=== PATIENT | female | born 1990 | race African-American/Black ===

== ENCOUNTER 2017-06-22 08:59 | Inpatient (IN) | payer OTHER ==
[2017-06-22 09:34] LABS: APPEARANCE,URINE SLIGHTLY-CLOUDY; BILIRUBIN,URINE NEGATIVE (NEGATIVE); GLUCOSE, URINE NEGATIVE (NEGATIVE); KETONES,URINE NEGATIVE (NEGATIVE); LEUKOCYTE ESTERASE,URINE TRACE (NEGATIVE); NITRITE,URINE NEGATIVE (NEGATIVE); PROTEIN,URINE NEGATIVE (NEGATIVE); URINE SPECIFIC GRAVITY 1.011
[2017-06-22 09:51] LABS: URINE BARBITURATES SCREEN NEGATIVE; URINE METHADONE SCREEN NEGATIVE; URINE OPIATES LOW NEGATIVE
[2017-06-22] MEDS ORDERED: RINGERS SOLUTION,LACTATED 1,000 ML IV ONE (09:59)
[2017-06-22] MEDS ORDERED: RINGERS SOLUTION,LACTATED 1,000 ML IV PRN (10:03)
[2017-06-22] MEDS ORDERED: LIDOCAINE 1% INJ-PF (10 MG/ML) 30 ML SDV ONE (10:27)
[2017-06-22] MEDS ORDERED: MISOPROSTOL 0.2 MG TABLET ONE (10:27)
[2017-06-22] MEDS ORDERED: OXYTOCIN/NORMAL SALINE 20 UNIT/1,000 ML RTUINJ ONE ×2 (10:27→21:34)
[2017-06-22 10:35] LABS: URINE PHENCYCLIDINE SCREEN NEGATIVE
[2017-06-22] MEDS ORDERED: OXYTOCIN/NORMAL SALINE 1,000 ML IV PRN (10:37)
[2017-06-22 11:00] LABS: ABSOLUTE EOSINOPHILS # (AUTO) 0.1 10^3/uL (0.0-0.6); ABSOLUTE LYMPHOCYTES (AUTO) 1.2 10^3/uL (0.5-4.7); ABSOLUTE MONOCYTES (AUTO) 0.7 10^3/uL (0.1-1.4); BASOPHILS % (AUTO) 0.2 % (0-2); EOSINOPHILS % (AUTO) 0.7 % (0-6); HEMATOCRIT 29.8 % (36.0-47.0); HEMOGLOBIN 9.7 g/dL (12.0-15.5); HGB HCT DIFFERENCE -0.7; LYMPHOCYTES % (AUTO) 13.1 % (13-45); MEAN CORPUSCULAR HEMOGLOBIN 24.6 pg (27.0-33.4); MEAN CORPUSCULAR HGB CONC 32.7 g/dL (32.0-36.0); MEAN CORPUSCULAR VOLUME 75 fl (80-97); MONOCYTES % (AUTO) 7.5 % (3-13); RED BLOOD COUNT 3.95 10^6/uL (3.72-5.28); RED CELL DISTRIBUTION WIDTH 15.3 % (11.5-14.0); SEGMENTED NEUTROPHILS % (AUTO) 78.5 % (42-78)
[2017-06-22] MEDS ORDERED: OXYTOCIN/NORMAL SALINE 20 UNIT/1,000 ML RTUINJ IV PRN (11:11)
[2017-06-22] MEDS ORDERED: FENTANYL/BUPIVACAINE/NS/PF 200 MCG/100 ML RTUINJ EPI ONE (15:12)
[2017-06-22] MEDS ORDERED: FENTANYL CITRATE INJ/PF 100 MCG/2 ML AMPUL ONE ×3 (15:12→21:56)
[2017-06-22] MEDS ORDERED: EPHEDRINE SULFATE INJ 50 MG/1 ML AMPULE ONE ×2 (15:12→20:55)
[2017-06-22] MEDS ORDERED: PHENYLEPHRINE HCL INJ/PF 10 MG/1 ML SDV ONE (15:12)
[2017-06-22] MEDS ORDERED: BUPIVACAINE HCL 0.25 % INJ/PF (2.5 MG/1 ML) 30 ML VIAL ONE (15:13)
--- NOTE | 2017-06-22 16:49 | L&D Progress Notes ---
PROGRESS NOTES Datetime Report Generated by CPN: 06/22/2017 16:48 PROGRESS NOTE Impression: Normal Progression of Labor Impression: Normal Progression of Labor Procedures: Artificial ROM; Scalp Electrode Procedures: Artificial ROM; Sterile Vag Exam Plan: Continue Present Management Plan: Continue Present Management; Induction Informed Consent Obtained: Vaginal Delivery Informed Consent Obtained: Vaginal Delivery Vital Signs : Reviewed Vital Signs : Reviewed Comment: Attempted AROM, no fluid return Bloody show Continue pitocin VAGINAL EXAM Dilatation: 4 Dilatation: 3 Effacement: 80 Effacement: 60 Station: 0 Station: 0 Contractions: every 2 Contractions: irregular MEMBRANES Membranes: Ruptured Membranes: Intact FETUS A FHR - Baseline: 135 Monitoring: External US Variability: Moderate 6-25bpm Accelerations: 15X15 Decelerations: None FHR Category: Category I Estimated Weight (gm): 3400 Presentation: Vertex SIGNATURE SIGNATURE: [id number] Assignment: Gerri Marin MD Signature: with User ID: [email or web address] : with User ID: [email or web address]
[2017-06-22] MEDS ORDERED: SODIUM BICARBONATE 8.4% INJ 50 MEQ/50 ML DISP.SYRIN ONE (17:34)
[2017-06-22] MEDS ORDERED: LIDOCAINE 2%/EPINEPHRINE INJ 20 ML VIAL ONE (17:34)
[2017-06-22] MEDS ORDERED: ONDANSETRON HCL INJ/PF 4 MG/2 ML SDV ONE ×2 (19:11→21:45)
--- NOTE | 2017-06-22 19:27 | L&D Progress Notes ---
PROGRESS NOTES Datetime Report Generated by CPN: 06/22/2017 19:27 PROGRESS NOTE Impression: Normal Progression of Labor; Reassuring Heart Rate Procedures: Sterile Vag Exam Plan: Continue Present Management Informed Consent Obtained: Vaginal Delivery Vital Signs : Reviewed; Within Normal Limits Comment: SVE as above anticipate VAGINAL EXAM Dilatation: 7 Effacement: 90 Station: 0 Contractions: 2-4 MEMBRANES Membranes: Ruptured Amniotic Fluid Color: Clear FETUS A FHR - Baseline: 135 Monitoring: External US Variability: Moderate 6-25bpm Accelerations: 15X15 Decelerations: None; Early FHR Category: Category I FETUS C SIGNATURE: [id number] Assignment: Gerri Marin MD Signature: with User ID: [email or web address] : with User ID: [email or web address]
[2017-06-22] MEDS ORDERED: CEFAZOLIN 2 GM/D5W RTU 2 GM/50 ML RTUPB IV ONE (20:41)
[2017-06-22] MEDS ORDERED: CITRIC ACID/SODIUM CITRATE ORAL SOLN 15 ML UDCUP ONE (20:45)
[2017-06-22] MEDS ORDERED: OXYTOCIN 10 UNIT/ML VIAL ONE (20:55)
[2017-06-22] MEDS ORDERED: MIDAZOLAM 2 MG/2 ML INJ ONE (20:56)
[2017-06-22] MEDS ORDERED: METHYLERGONOVINE MALEATE INJ/PF 0.2 MG/1 ML AMPULE ONE (21:09)
[2017-06-22] MEDS ORDERED: ONDANSETRON HCL INJ/PF 4 MG/2 ML SDV IV PRN (21:20)
[2017-06-22] MEDS ORDERED: DIPHENHYDRAMINE HCL 50 MG/ML VIAL IV PRN (21:20)
[2017-06-22] MEDS ORDERED: MEPERIDINE HCL/PF INJ 25 MG/1 ML DISP.SYRIN IV PRN (21:20)
[2017-06-22] MEDS ORDERED: MORPHINE SULFATE 10 MG/ML INJ IV PRN (21:20)
[2017-06-22] MEDS ORDERED: PROMETHAZINE HCL INJ 25 MG/1 ML VIAL IV PRN ×2 (21:20)
[2017-06-22] MEDS ORDERED: FENTANYL CITRATE INJ/PF 100 MCG/2 ML AMPUL IV PRN ×2 (21:20)
[2017-06-22] MEDS ORDERED: OXYCODONE-ACETAMINOPHEN 5-325 MG TABLET PO PRN ×2 (21:20)
--- NOTE | 2017-06-22 21:34 | L&D Progress Notes ---
PROGRESS NOTES Datetime Report Generated by CPN: 06/22/2017 21:34 PROGRESS NOTE Comment: Strong urge to push. Anterior lip, pushed away initially, but became very swollen with very little descent Dr. Marin called to bedside Discussed c/s with pt Verbal consent obtained Pt preparred for surgery. FETUS C SIGNATURE: [id number] Assignment: Gerri Marin MD Signature: with User ID: [email or web address] : with User ID: [email or web address]
[2017-06-22] MEDS ORDERED: MORPHINE SULFATE 10 MG/ML INJ ONE (21:57)
[2017-06-22] MEDS ORDERED: HYDROMORPHONE HCL INJ/PF 2 MG/ML AMPULE ONE (21:59)
[2017-06-22] MEDS ORDERED: HYDROMORPHONE HCL 2 MG TABLET PO ONE (22:02)
[2017-06-22] MEDS ORDERED: ACETAMINOPHEN 100 ML IV PRN (22:08)
--- NOTE | 2017-06-22 22:12 | OPERATIVE REPORT E ---
Operative Report NAME: MARIO SMITH : 1990 AGE: 26Y DATE OF SURGERY: 06/22/2017 ROOM: LR200 PREOPERATIVE DIAGNOSIS: Intrauterine at term with oligohydramnios and nonreassuring heart tones, in labor. POSTOPERATIVE DIAGNOSIS: Intrauterine at term with oligohydramnios and nonreassuring heart tones, in labor. OPERATION PERFORMED: Primary low transverse . SURGEON: RADHA MCCOY M.D. ANESTHESIA: Epidural which was bolused. ESTIMATED BLOOD LOSS: 750 mL. SPECIMENS: Placenta was sent to pathology. FINDINGS: Quijano female , vertex presentation but occiput posterior position. Weight was 8 pounds. Apgars 9 and 9. Normal uterus, tubes and ovaries. DESCRIPTION OF PROCEDURE: After discussing risks, benefits, and alternatives, the patient was taken to the operating room with epidural bolus. She was positioned in the dorsal supine position with a leftward tilt. She was prepped and draped in the usual standard fashion. Anesthesia was found to be adequate and Pfannenstiel skin incision was made. Abdomen was entered in layers in the standard fashion. Using the c-safe knife, a low transverse cervical incision was made. Surgeon's hand was entered into the hysterotomy incision and the vertex was elevated out of the pelvis and delivered. Shoulders and body delivered easily thereafter. Nasopharynx and oropharynx were bulb suctioned. Cord was clamped and cut. Infant was handed to pediatrics, who were present. Placenta was manually extracted. Uterus was exteriorized and cleared of all clots and debris. Hysterotomy incision was closed with 0 Monocryl in a running-locked fashion. An area of oozing on the left aspect of the uterus was oversewn with [id number]-ob-fxfma of 0 Monocryl. Hemostasis was then observed. Uterus, tubes, and ovaries returned to the peritoneal cavity, and the cavity was irrigated. The patient was also given an amp of Methergine IM, as the uterus had been very boggy after protracted induction. The peritoneum was irrigated and hemostasis assured. Surgicel was placed over the lower uterine segment. The peritoneum was closed with 2-0 Vicryl. The muscles were loosely reapproximated with interrupted sutures of 2-0 Vicryl. Subfascial spaces were inspected and hemostasis achieved with cautery. The fascia was closed with 0 Vicryl. Subcutaneous spaces were irrigated and hemostasis achieved with cautery. The subcutaneous spaces were closed with 3-0 plain gut and the skin was closed in a subcuticular fashion with 3-0 Vicryl. An OpSite dressing was applied. Cytotec 1000 mcg was placed per rectum to help maintain good uterine tone. The patient was taken to recovery in stable condition. All sponge, needle, lap, and instrument counts were correct x2. DICTATING PHYSICIAN: RADHA MCCOY M.D. [id number] PHY#: [id number] ID: [id number] JOB#: [id number] ACCT: [id number] cc:RADHA MCCOY M.D. > MTDD
[2017-06-22] MEDS ORDERED: ACETAMINOPHEN 100 ML IV ONE (22:16)
[2017-06-22] MEDS ORDERED: PROMETHAZINE HCL INJ 25 MG/1 ML VIAL ONE (22:16)
[2017-06-22] MEDS: FENTANYL CITRATE INJ/PF 100 MCG/2 ML AMPUL IV PRN ×2 (22:32→22:55)
--- NOTE | 2017-06-22 22:43 | Delivery Summary ---
Del Sum A-C Datetime Report Generated by CPN: 06/22/2017 22:43 DELIVERY PERSONNEL DELIVERY PERSONNEL: [id number] Delivery Doctor:: Gerri Marin MD Anesthesiologist:: Vero Ying MD FINE ARTS MODEL:: HENRIK Aleman Labor and Delivery Nurse:: Lisa Chambers RN Neonatal Nurse Practitioner:: SARAH Ovalle Certified [place]orth[place] Reporter/CUSTOMER CONSULTANT: [facility] Yandy Certified Shorthand Reporter/CUSTOMER CONSULTANT: [facility] Bogdan Additional Personnel: : Willow Johnson CNA MATERNAL INFORMATION Delivery Anesthesia: Epidural Medications After Delivery: Pitocin Drip 20 Units/1000ml NSS; Methergine 0.2mg IM; Other-Please Comment Meds After Delivery Comment: Cytotec 1000mcg placed in OR by Dr Marin Maternal Complications: None LABOR SUMMARY EDC: 06/21/2017 00:00 No. Babies in Womb: 1 Attempted: No Labor Anesthesia: Epidural LABOR INFORMATION Reason for Induction: Oligohydramnios Onset of Labor: 06/22/2017 16:23 Oxytocin: Induction Group B Beta Strep: negative Steroids Given: None Reason Steroids Not Administered: Not Applicable MEMBRANES Membranes Rupture Method: Artificial Rupture of Membranes: 06/22/2017 16:23 Length of Rupture (hr): 4.65 Amniotic Fluid Color: Clear Amniotic Fluid Amount: None Amniotic Fluid Odor: Normal STAGES OF LABOR Stage 3 hr: 0 Stage 3 min: 1 Total Time in Labor hr: 4 Total Time in Labor min: 40 CSECTION DELIVERY Primary Indication: Nonreassuring Status CSection Urgency: Emergency CSection Incidence: Primary Labor: Labor Elective: N/A CSection Incision: Lower Uterine Transverse BABY A INFORMATION Delivery Date/Time: 06/22/2017 21:02 Method of Delivery: Born in Route : No : N/A Forceps: N/A Vacuum Extraction: N/A Shoulder Dystocia : No PRESENTATION/POSITION BABY A Presentation: Cephalic Cephalic Presentation: Vertex Breech Presentation: N/A PLACENTA INFORMATION BABY A Placenta Delivery Time : 06/22/2017 21:03 Placenta Method of Delivery: Spontaneous Placenta Status: Delivered SCORES BABY A Heart Rate 1 min: >100 bpm Resp Effort 1 min: Good Cry Reflex Irritability 1 min: Cough or Sneeze or Pulls Away Muscle Tone 1 min: Active Motion Color 1 min: Body Reedy, Extremities Blue SCORE 1 MIN: 9 Heart Rate 5 min: >100 bpm Resp Effort 5 min: Good Cry Reflex Irritability 5 min: Cough or Sneeze or Pulls Away Muscle Tone 5 min: Active Motion Color 5 min: Body Reedy, Extremities Blue SCORE 5 MIN: 9 INFANT INFORMATION BABY A Gestational Age at Delivery: 40.1 Gestational Status: Full Term- 39- 40.6 Weeks Outcome : Liveborn Condition : Stable Infant Sex: Female IDENTIFICATION BABY A Verification Date/Time: 06/22/2017 21:08 ID Band Number: [id number] Mother's Name Verified: Yes Infant RN Verifying Infant: S. Lattibjessicair, RN _ KSajan Cordero, RN WEIGHT/LENGTH BABY A Birthweight (gm): 3640 Weight (lb): 8 Infant Weight (oz): 0 Infant Length (in): 21.75 Length (cm): 55.25 CORD INFORMATION BABY A No. Cord Vessels: 3 Nuchal Cord : N/A Cord Blood Taken: Yes-For Eval (Mom's Blood Type - or O+) Suction: Mouth; Nose ASSESSMENT BABY A Infant Complications: Other Complications- Other: prolonged decel Physical Findings at Delivery: Within Normal Limits Respirations: Appears Normal Skin to Skin: No Skin to Skin Time (min): 0 Encapsulator/ALS Called : No Care By: Shashank Fernando RN Transferred To: Nursery
[2017-06-22] MEDS ORDERED: OXYCODONE-ACETAMINOPHEN 5-325 MG TABLET ONE (23:46)
--- NOTE | 2017-06-22 23:58 | Admission Physical ---
Datetime Report Generated by CPN: 06/22/2017 23:58 CURRENT ADMISSION Hx Assessment: The History has been Reviewed and is Current Chief Complaint: Uterine Contractions; Other Chief Complaint Other: oligo Indication for Induction: Post Dates; Oligohydramnios Admit Plan: Admit to Unit ALLERGIES Medication Allergies: No Medication Allergies: No Known Allergies (06/22/2017) Latex: No Latex Allergies OBSTETRICAL HISTORY EDC: 06/21/2017 00:00 : 2 Para: 1 Term: 1 : 0 SAB: 0 IAB: 0 Ectopic: 0 Livin Cesareans: 0 VBACs: 0 Multiple Births: 0 Gestational Diabetes: No Rh Sensitization: No Incompetent Cervix: No ERVNI: No Infertility: No ART Treatment: No Uterine Anomaly: No IUGR: No Hx Previous C/S: No Macrosomia: No Hx Loss/Stillborn: No PIH: No Hx : No Placenta Previa/Abruption: Yes Depression/PP Depression: No PTL/PROM: No Post Hemorrhage: No Current Procedures: Ultrasound; NST Obstetrical History Comments: G1: 09/2011, G2: current, marginal previa (resolved) SEE RECORDS Alcohol: No Marijuana : No Cocaine: No Other Illicit Drugs: No Cigarettes: Never Smoker. [id number] MEDICAL HISTORY Diabetes: No Blood Transfusion: No Pulmonary Disease (Asthma, TB): No Breast Disease: No Hypertension: No Installer Soft Top Surgery: No Heart Disease: No Hosp/Surgery: Yes Autoimmune Disorder: No Anesthetic Complications: No Kidney Disease: No Abnormal Pap Smear: No Neuro/Epilepsy: No Psychiatric Disorders: No Other Medical Diseases: No Hepatitis/Liver Disease: No Significant Family History: No Varicosities/Phlebitis: No Trauma/Violence : No Thyroid Dysfunction: No Medical History Comments: Umbilicalplasty INFECTIOUS HISTORY Gonorrhea: No Genital Herpes: No Chlamydia: No Tuberculosis: No Syphilis: No Hepatitis: No HIV/AIDS Exposure: No Rash or Viral Illness: No HPV: No Infectious History Comments: BV PHYSICAL EXAM General: Normal HEENT: Normal Neurologic: Normal Thyroid: Deferred Heart: Normal Lungs: Normal Breast: Normal Back: Normal Abdomen: Normal Genitourinary Exam: Normal Extremities: Normal DTRs: Normal Pelvic Type: Adequate Physical Exam Comments: pelvis proven 6 lbs 14oz Vital Signs: Reviewed VAGINAL EXAM Dilatation: 7 Dilatation: 4 Dilatation: 3 Effacement: 90 Effacement: 80 Effacement: 60 Station: 0 Station: 0 Station: 0 Contraction Comments: 2-4 Contraction Comments: every 2 Contraction Comments: irregular MEMBRANES Membranes: Ruptured Membranes: Ruptured Membranes: Intact Amniotic Fluid Color: Clear FETUS A EGA: 40.1 Monitoring: External US FHR- Baseline: 125 Variability: Moderate 6-25bpm Accelerations: 15X15 Decelerations: None FHR Category: Category III Estimated Weight (gm): 3400 Presentation: Vertex Admit Comment: ? leaking, neg nitr, neg pooling DAVID 4 GBS neg Admit to L and D Pitocin see hx for complete hx PLANS FOR LABOR AND DELIVERY Labor and Delivery: None Pain Management: Epidural Feeding Preference: Both Benefit of Breast Feed Discussed: Yes Circumcision: N/A INFORMED CONSENT Informed Consent Obtained: Vaginal Delivery Informed Consent Obtained: Vaginal Delivery Informed Consent Obtained: Vaginal Delivery Assignment: Gerri Marin MD Signature: with User ID: [email or web address] : with User ID: [email or web address]
[2017-06-23] MEDS ORDERED: OXYCODONE-ACETAMINOPHEN 5-325 MG TABLET PO PRN (00:35)
[2017-06-23] MEDS ORDERED: DIPH/PERTUSS(ACELL)/TETANUS VAC/PF 0.5 ML SYR (>=10YO) IM PRN (00:35)
[2017-06-23] MEDS ORDERED: ACETAMINOPHEN 325 MG TABLET PO PRN (00:35)
[2017-06-23] MEDS ORDERED: MEASLES,MUMPS&RUBELLA VACC/PF 0.5 ML VIAL SUBCUT PRN (00:35)
[2017-06-23] MEDS ORDERED: OXYTOCIN/NORMAL SALINE 1,000 ML IV PRN (00:35)
[2017-06-23] MEDS ORDERED: PROMETHAZINE HCL INJ 25 MG/1 ML VIAL IV PRN (00:35)
[2017-06-23] MEDS ORDERED: RINGERS SOLUTION,LACTATED 1,000 ML IV PRN (00:35)
[2017-06-23] MEDS ORDERED: HYDROMORPHONE HCL INJ/PF 2 MG/ML AMPULE ONE (00:39)
[2017-06-23] MEDS ORDERED: CEFAZOLIN 2 GM/D5W RTU 2 GM/50 ML RTUPB IV SCH (01:00)
[2017-06-23] MEDS ORDERED: HYDROMORPHONE HCL INJ/PF 2 MG/ML AMPULE INJ PRN (01:35)
[2017-06-23] MEDS: CEFAZOLIN 2 GM/D5W RTU 2 GM/50 ML RTUPB IV SCH ×4 (03:41→21:00)
[2017-06-23] MEDS: HYDROMORPHONE HCL INJ/PF 2 MG/ML AMPULE INJ PRN ×2 (03:45→07:06)
[2017-06-23] MEDS: IBUPROFEN 800 MG TABLET PO SCH ×4 (05:21→23:08)
[2017-06-23] MEDS: PRENATAL VITAMIN W-O CA NO5/FE FUMARATE/FA CAPSULE PO SCH (09:54)
[2017-06-23] MEDS: DOCUSATE SODIUM 100 MG CAPSULE PO SCH ×2 (09:54→17:30)
--- NOTE | 2017-06-23 13:01 | PDOC PROGRESS REPORT ---
Subjective-OB Subjective: Post Delivery Day: 26 year old. Denies any needs at this time. Pt denies complaints. She reports light bleeding, regular diet. FC to BSD with clear yellow urine. Has not been out of bed yet. Physical Exam (OB) Vital Signs: Temp Pulse Resp BP Pulse Ox 99.1 F 78 14 104/58 L 98 06/23/17 11:40 06/23/17 11:40 06/23/17 11:40 06/23/17 11:40 06/23/17 11:40 Intake & Output 06/22/17 06/23/17 06/24/17 06:59 06:59 06:59 Output Total 450 1000 Balance -450 -1000 Weight 81.3 kg - Dressing Removed: No - opsite Incision: Dressing - Lochia Lochia Amount: Small 10-25 ml Lochia Color: Rubra/Red - Abdomen Description: Soft Hernia Present: No Fundal Description: Firm, Midline Fundal Height: u/u - u/2 Objective-Diagnostic Laboratory: 06/22/17 10:47 Assessment and Plan(PN) - Assessment and Plan (1) Delivery by emergency caesarean section Is this a current diagnosis for this admission?: Yes (2) Oligohydramnios delivered Is this a current diagnosis for this admission?: Yes - Time Spent with Patient Time with patient: Less than 15 minutes Medications reviewed and adjusted accordingly: Yes - Disposition Anticipated Discharge: Home Within: within 48 hours
[2017-06-23] MEDS ORDERED: CEFAZOLIN 1 GM/D5W RTU 1 GM/50 ML RTUPB IV ONE (14:02)
[2017-06-23] MEDS: OXYCODONE-ACETAMINOPHEN 5-325 MG TABLET PO PRN ×2 (15:48→19:36)
[2017-06-23] MEDS: SIMETHICONE 80 MG TAB.CHEW PO PRN (19:34)
[2017-06-24] MEDS: OXYCODONE-ACETAMINOPHEN 5-325 MG TABLET PO PRN (03:26)
[2017-06-24] MEDS: IBUPROFEN 800 MG TABLET PO SCH ×2 (05:18→11:18)
[2017-06-24 06:55] LABS: HEMATOCRIT 24.9 % (36.0-47.0); HEMOGLOBIN 8.1 g/dL (12.0-15.5); HGB HCT DIFFERENCE -0.6; MEAN CORPUSCULAR HEMOGLOBIN 24.8 pg (27.0-33.4); MEAN CORPUSCULAR HGB CONC 32.5 g/dL (32.0-36.0); MEAN CORPUSCULAR VOLUME 76 fl (80-97); RED BLOOD COUNT 3.27 10^6/uL (3.72-5.28); RED CELL DISTRIBUTION WIDTH 15.2 % (11.5-14.0); WHITE BLOOD COUNT 12.1 10^3/uL (4.0-10.5)
[2017-06-24] MEDS: SIMETHICONE 80 MG TAB.CHEW PO PRN (08:18)
[2017-06-24] MEDS: DOCUSATE SODIUM 100 MG CAPSULE PO SCH (08:18)
[2017-06-24] MEDS: PRENATAL VITAMIN W-O CA NO5/FE FUMARATE/FA CAPSULE PO SCH (08:25)
--- NOTE | 2017-06-24 12:25 | PDOC DISCHARGE SUMMARY ---
Final Diagnosis Discharge Date: 06/24/17 - Final Diagnosis (1) Delivery by emergency caesarean section Is this a current diagnosis for this admission?: Yes (2) Oligohydramnios delivered Is this a current diagnosis for this admission?: Yes Discharge Data - Discharge Medication Home Medications: Pnv with Ca,No.72/Iron/FA [Pnv Plus Multivit Tab] 1 tab PO DAILY Reason(s) for Admission: Ceasarean Section-Repeat Intrapartum Procedure(s): : Low Cervical, Transverse - Diagnosis Test Laboratory: Temp Pulse Resp BP Pulse Ox 98.0 F 73 15 111/64 100 06/24/17 07:43 06/24/17 07:43 06/24/17 07:43 06/24/17 07:43 06/24/17 07:43 06/22/17 06/22/17 06/24/17 09:09 10:47 06:23 RBC 3.95 3.27 L Hgb 9.7 L 8.1 L Hct 29.8 L 24.9 L Urine Opiates Screen NEGATIVE - Discharge information/Instructions Discharge Activity: Activity As Tolerated Discharge Diet: Regular Disposition: HOME, SELF-CARE Follow up with: [facility] in: 1
[2017-06-24 13:08] VITALS: BP 108/58
== END 2017-06-24 14:45 | disposition home or self-care (01) | DRG 765 ==
LOC: LC 08:59 → LR 09:42 → 2S 23:53
PROVIDERS: ADMIT Specialist; ATTEND Specialist
PROC: 10D00Z1 Extraction of Products of Conception, Low, Open Approach (ICD-10-PCS; principal; 2017-06-21)
PROC: 4A1HXCZ Monitoring of Products of Conception, Cardiac Rate, External Approach (ICD-10-PCS; 2017-06-21)
PROC: 4A1H7CZ Monitoring of Products of Conception, Cardiac Rate, Via Natural or Artificial Opening (ICD-10-PCS; 2017-06-21)
PROC: 10H073Z Insertion of Monitoring Electrode into Products of Conception, Via Natural or Artificial Opening (ICD-10-PCS; 2017-06-21)
PROC: 10907ZC Drainage of Amniotic Fluid, Therapeutic from Products of Conception, Via Natural or Artificial Opening (ICD-10-PCS; 2017-06-22)
PROC: 3E033VJ Introduction of Other Hormone into Peripheral Vein, Percutaneous Approach (ICD-10-PCS; 2017-06-22)
DX: O76 Abnormality in fetal heart rate and rhythm complicating labor and delivery (principal); O41.03X0 Oligohydramnios, third trimester, not applicable or unspecified; O48.0 Post-term pregnancy; Z3A.40 40 weeks gestation of pregnancy; Z37.0 Single live birth
CPT/HCPCS: 1961; 36415; 80307; 81005; 85025; 85027; 86592; 86850; 86900; 86901; 88307; 94760; 94799; J0131; J0690; J1170; J2210; J2250; J2270; J2370; J2405; J2550; J2590; J3010; J3490